=== PATIENT | female | born 1995 | race Asian ===

== ENCOUNTER 2024-09-05 18:59 | Emergency (ER) | payer BC, MEDICAID ==
--- NOTE | 2024-09-05 19:18 | ED.PDOC ---
SOB-HPI HPI Comments This is a 28 year old female with no significant past medical history presenting to the ED with chief complaint of chest pain. Patient reports that during work this afternoon at her desk, she began to experiencing midsternal, sharp chest pain. Patient relays that she had woken up this morning with associated cough and subjective fever, taking DayQuil prior to her shift at work. Patient states her chest pain is increased when movement and deep breathing. Patient notes she had visited urgent care on Tuesday and was swabbed for COVID-19 and Influenza, both coming back negative. Patient denies any N/V, SOB, dizziness, headache, chills, or abdominal pain. Time Seen by MD: 19:16 Reviewed notes: Nurses Notes, Medications, Allergies Information Source: Patient Mode of Arrival: Ambulatory Severity: Moderate Timing: Hours Duration: Since onset Context: At Rest PE Risk Factors: None History of: None Prehospital treatment: None Modifying Factors: Nothing Associated Signs and Symptoms: Cough, Chest Pain Quality: Sharp Radiation: No Radiation Location: Substernal If cough with SOB: Non-Productive Past Medical History PAST MEDICAL HISTORY: Denies Surgical History: Denies all surgeries HOSPITAL INSURANCE REPRESENTATIVE History: No Pertinent HOSPITAL INSURANCE REPRESENTATIVE History Family History Family History: Reviewed,noncontributory to illness Social History Smoker: Non-Smoker Alcohol: Denies ETOH Use Drugs: Denies Drug Use Lives In: Home Constitutional: reports: fever; denies: chills, diaphoresis, fatigue, malaise, sweats, weakness, others EENTM: denies: blurred vision, double vision, ear bleeding, ear discharge, ear drainage, ear pain, ear ringing, eye pain, eye redness, hearing loss, mouth pain, mouth swelling, nasal discharge, nose bleeding, nose congestion, nose pain, photophobia, tearing, throat pain, throat swelling, voice changes, others Respiratory: reports: cough; denies: hemoptysis, orthopnea, SOB at rest, shortness of breath, SOB with excertion, stridor, wheezing, others Cardiovascular: reports: chest pain; denies: dizzy spells, diaphoresis, Dyspnea on exertion, edema, irregular heart beat, left arm pain, lightheadedness, palpitations, PND, syncope, others Gastrointestinal: denies: abdomen distended, abdominal pain, blood streaked bowels, constipated, diarrhea, dysphagia, difficulty swallowing, hematemesis, melena, nausea, poor appetite, poor fluid intake, rectal bleeding, rectal pain, vomiting, others Genitourinary: denies: abnormal vagina bleeding, burning, dyspareunia, dysuria, flank pain, frequency, hematuria, incontinence, pain, , vagina discharge, urgency, others Neurological: denies: dizziness, fainting, headache, left sided numbness, left sided weakness, numbness, paresthesia, pre-existing deficit, right sided numbness, right sided weakness, seizure, speech problems, tingling, tremors, weakness, others Musculoskeletal: denies: back pain, gout, joint pain, joint swelling, muscle pain, muscle stiffness, neck pain, others Integumetry: denies: bruises, change in color, change in hair/nails, dryness, laceration, lesions, lumps, rash, wounds, others Allergic/Immunocompromised: denies: Difficulty Healing, Frequent Infections, Hives, Itching, others Hematologic/Lymphatic: denies: anemia, blood clots, easy bleeding, easy bruising, swollen glands, others Endocrine: denies: excessive hunger, excessive sweating, excessive thirst, excessive urination, flushing, intolerance to cold, intolerance to heat, unexplained weight gain, unexplained weight loss, others Psychiatric: denies: anxiety, bipolar disorder, depression, hopeless, panic disorder, schizophrenia, sleepless, suicidal, others All Other Systems: Reviewed and Negative Physical Exam General Appearance: No Apparent Distress HEENT: Other (Pupils and face symmetric. Moist mucous membranes.) Neck: Full Range of Motion, Normal Inspection Respiratory: Chest Non-Tender, Lungs Clear, No Accessory Muscle Use, No Respiratory Distress, Normal Breath Sounds Cardiovascular: No Edema, No JVD, Tachycardia Breast Exam: Deferred Gastrointestinal: Non Tender, Soft Genitalia: Deferred Pelvic: Deferred Rectal: Deferred Extremities: Normal inspection, Normal range of motion, Non-tender, No pedal edema Neurologic: Alert (Oriented x4), Normal Affect, Normal Mood, Other (Ambulatory) Cerebellar Function: NOT DONE Reflexes: NOT DONE Skin: Dry, Normal Color, Warm Lymphatic: NOT DONE EKG EKG : Pulse Rate (adult): 109 Comments Sinus tach, rate 109, normal intervals, normal axis, normal QRS, anteroseptal T inversion with other nonspecific T changes. Was a procedure done? Was a procedure done?: No Differential Dx Differential Diagnosis: Asthma, Bronchitis, CHF, COPD, Dysrhythmia, Panic Attack, Pneumonia, Pulmonary Embolism, URI, Other (ACS, SC, among others) X-Ray, Labs, Meds, VS Vital Signs Date Time Temp Pulse Resp B/P (MAP) Pulse Ox O2 Delivery O2 Flow Rate FiO2 09/05/24 19:18 109 09/05/24 19:10 109 Lab Test 09/05/24 20:20 09/05/24 19:33 Range/Units Troponin I High Sensitivity Pending < 3 L </=34 ng/L White Blood Count 9.5 4.4-10.8 10^3/uL Red Blood Count 6.13 H 4.0-5.20 10^6/uL Hemoglobin 12.0 L 12.2-16.2 g/dL Hematocrit 37.2 36.0-46.0 % Mean Corpuscular Volume 60.6 L 80.0-100.0 fL Mean Corpuscular Hemoglobin 19.6 L 28.0-32.0 pg Mean Corpuscular Hemoglobin Concent 32.3 32.0-36.0 g/dL Red Cell Distribution Width 16.4 H 11.8-14.3 % Platelet Count 219 140-450 10^3/uL Mean Platelet Volume 8.5 6.9-10.8 fL Neutrophils (%) (Auto) 72.0 37.0-80.0 % Lymphocytes (%) (Auto) 15.8 10.0-50.0 % Monocytes (%) (Auto) 6.7 0.0-12.0 % Eosinophils (%) (Auto) 5.0 0.0-7.0 % Basophils (%) (Auto) 0.5 0.0-2.0 % Neutrophils # (Auto) 6.9 1.6-8.6 10 ^3/uL Lymphocytes # (Auto) 1.5 0.4-5.4 10 ^3/uL Monocytes # (Auto) 0.6 0-1.3 10 ^3/uL Eosinophils # (Auto) 0.5 0-0.8 10 ^3/uL Basophils # (Auto) 0.1 0-0.2 10 ^3/uL Nucleated Red Blood Cells 0.0 % Prothrombin Time 10.3 9.3-11.8 sec Prothrombin Time INR 0.97 0.9-1.15 Activated Partial Thromboplast Time 31.0 24.5-34.5 SEC D-Dimer, Quantitative 0.31 0.0-0.49 mg/L FEU Sodium Level 139 136-145 mmol/L Potassium Level 3.6 3.5-5.1 mmol/L Chloride Level 103 98-107 mmol/L Carbon Dioxide Level 23 20-31 mmol/L Anion Gap 13 5-15 Blood Urea Nitrogen 10 9-23 mg/dL Creatinine 0.68 0.550-1.02 mg/dL Glomerular Filtration Rate Calc 122 >90 mL/min BUN/Creatinine Ratio 14.7 10.0-20.0 Serum Glucose 88 74-106 mg/dL Calcium Level 9.9 8.7-10.4 mg/dL B-Type Natriuretic Peptide 6.02 0-100 pg/mL [address] [address] Ph: [phone] DIAGNOSTIC IMAGING Diagnostic Imaging Report : [id number] Signed PATIENT: ALBA FONG ACCT: [id number] UNIT: [id number] : 1995 LOC: ER ROOM / BED: / AGE / SEX: 28 / F ADM STATUS: REG ER SERVICE 13 ORDERING PHYSICIAN: JF RUBI MD PROCEDURE(s): CXRP - CHEST PORTABLE REASON: cp ORDER NUMBER(s): [id number], ACCESSION NUMBER(s): [id number] CHEST RADIOGRAPH Indication: cp Technique: Single frontal view of the chest was obtained Comparison: None FINDINGS: Lines and Tubes: None Lungs: No focal consolidation. Pleura: No effusion. No pneumothorax. Cardiomediastinal contours: Unremarkable Bones: No acute osseous abnormality. IMPRESSION: 1. No acute cardiopulmonary disease. X-Ray, Labs, Meds, VS Comment 20-year-old female with no significant past medical history complaining of chest pain, cough and subjective fever Vitals remarkable for heart rate 109 Exam unremarkable except for tachycardia Rhythm strip independently interpreted by me: Sinus tach, rate 109, no ectopy. Chest x-ray IMPRESSION: 1. No acute cardiopulmonary disease. CBC, basic metabolic panel, BNP, D-dimer, coagulation panel and 2 serial troponins unremarkable for any abnormality of acute significance Patient treated with the following in the ED: Toradol 45 mg IM with improvement of her chest pain. She was not short of breath on re-evaluation, and vitals were stable. She was no longer tachycardic. Hospitalization was considered, however patient's workup is unremarkable and she states she feels better, so I no longer feel hospitalization is necessary. Patient now appears stable for discharge with close outpatient follow-up with her primary physician. Rx ibuprofen, Tylenol, Zithromax Time of 1ST Reevaluation: 20:15 Reevaluation 1ST: Unchanged Patient Education/Counseling: Diagnosis, Treatment Family Education/Counseling: Diagnosis, Treatment SEPSIS Sepsis Screen SEPSIS EXCLUSION NOTE: Sepsis Exclusion Note: Patient presents with SIRS criteria, but the SIRS response is attributed to [chest pain ], not a suspected infection. Sepsis bundle is not initiated at this time, due to this reason. Further management will focus on the treatment of the above condition (s). Physician Orders Chest Portable (09/05/24 19:14) Troponin-I Hs (09/05/24 20:14) Urinalysis (09/05/24 19:14) Test, Urine (09/05/24 19:14) Vital Signs Date Time Temp Pulse Resp B/P (MAP) Pulse Ox O2 Delivery O2 Flow Rate FiO2 09/05/24 19:18 109 09/05/24 19:10 109 Laboratory Tests Test 09/05/24 19:33 White Blood Count 9.5 10^3/uL (4.4-10.8) Departure 1 Departure Time of Disposition: 20:51 Impression: Primary Impression: Acute cough Additional Impression: Pleuritic chest pain Disposition: 01 HOME / SELF CARE / HOMELESS Condition: Stable Additional Instructions: Your blood tests, including screening test for heart attack, heart failure, and blood clots in your lungs, were unremarkable. Your chest x-ray was unremarkable. I have enclosed the report below. I have prescribed pain medication and antibiotics to cover a possible respiratory infection. Follow-up with your primary doctor in 1-2 days. Return to ER for persistent or worsening symptoms. [address] [address] Ph: [phone] DIAGNOSTIC IMAGING Diagnostic Imaging Report : [id number] Signed PATIENT: ALBA FONG ACCT: [id number] UNIT: [id number] : 1995 LOC: ER ROOM / BED: / AGE / SEX: 28 / F ADM STATUS: REG ER SERVICE 13 ORDERING PHYSICIAN: JF RUBI MD PROCEDURE(s): CXRP - CHEST PORTABLE REASON: cp ORDER NUMBER(s): [id number], ACCESSION NUMBER(s): [id number] CHEST RADIOGRAPH Indication: cp Technique: Single frontal view of the chest was obtained Comparison: None FINDINGS: Lines and Tubes: None Lungs: No focal consolidation. Pleura: No effusion. No pneumothorax. Cardiomediastinal contours: Unremarkable Bones: No acute osseous abnormality. IMPRESSION: 1. No acute cardiopulmonary disease. e-Prescriptions Acetaminophen (Tylenol Extra Strength) 500 Mg Tab 1000 MG PO Q6HP PRN, #30 TAB Prn fever or pain. Prov: JF RUBI MD 09/05/24 Ibuprofen Micronized (Ibuprofen) 600 Mg Tab 600 MG PO Q6HP PRN, #30 TAB Prn fever or pain. Take with food. Prov: JF RUBI MD 09/05/24 Azithromycin (Zithromax Z-Garrett) 250 Mg Tab 250 MG PO DAILY for 5 Days, #6 TAB Two tabs p.o. on day 1, then 1 tab daily for the next 4 days Prov: JF RUBI MD 09/05/24 Discharged With: Relative Critical Care Note Critical Care Time?: No Stability Stability form required: No Heart Score Heart Score: Heart Score Response (Comments) Value History Slightly Suspicious 0 EKG Repolarization Disturb 1 Age <45 0 Risk Factors No known risk factors 0 Troponin Normal limit 0 Total 1 I personally scribed for JF RUBI MD ([email or web address]) on 09/05/24 at 19:18. Electronically submitted by Naun Rangel ([email or web address]). JF RUBI MD Sep 05, 2024 19:18
[2024-09-05 19:40] LABS: Hematocrit 37.2 % (36.0-46.0); Hemoglobin 12.0 g/dL (12.2-16.2); Mean Corpuscular Hemoglobin 19.6 pg (28.0-32.0); Mean Corpuscular Volume 60.6 fL (80.0-100.0); Nucleated Red Blood Cells % 0.0 %
[2024-09-05 19:50] LABS: Chloride 103 mmol/L (98-107); Potassium 3.6 mmol/L (3.5-5.1); Sodium 139 mmol/L (136-145)
[2024-09-05 19:51] LABS: Anion Gap 13 (5-15); Carbon Dioxide 23 mmol/L (20-31)
[2024-09-05 19:52] LABS: Calcium 9.9 mg/dL (8.7-10.4)
[2024-09-05 19:56] LABS: BUN/Creatinine Ratio 14.7 (10.0-20.0); Blood Urea Nitrogen 10 mg/dL (9-23); Glucose 88 mg/dL (74-106)
[2024-09-05 19:57] LABS: INR 0.97 (0.9-1.15); Partial Thromboplastin Time 31.0 SEC (24.5-34.5); Prothrombin Time 10.3 sec (9.3-11.8)
--- NOTE | 2024-09-05 20:50 | DVH ---
CHEST RADIOGRAPH Indication: cp Technique: Single frontal view of the chest was obtained Comparison: None FINDINGS: Lines and Tubes: None Lungs: No focal consolidation. Pleura: No effusion. No pneumothorax. Cardiomediastinal contours: Unremarkable Bones: No acute osseous abnormality. IMPRESSION: 1. No acute cardiopulmonary disease.
[2024-09-05] MEDS ORDERED: AZITTAB PO (20:54)
[2024-09-05] MEDS ORDERED: ACET-1304 PO (20:54)
[2024-09-05] MEDS ORDERED: IBUP1TAB5 PO (20:54)
[2024-09-05 21:21] VITALS: TEMP 99.8
[2024-09-05 21:30] VITALS: BP 116/69
[2024-09-05 21:34] VITALS: PULSE 97; RESP 17; O2SAT 97
[2024-09-05] MEDS: KETOROLAC TROMETH 30 MG/ML 1ML VIAL IM ONE (21:36)
--- NOTE | 2024-09-06 12:07 | ECG ---
[facility] Test Date: 2024-09-05 Test Time: 19:10:05 Pat Name: ALBA FONG Department: ER Room: Gender: F Laboratory Sample Carrier: : 1995 Requested By: JF GUAJARDO Order Number: [id number] Reading MD: Jadiel Gonzalez Measurements Intervals [place] Rate: 109 P: 71 [place]: 120 QRS: 86 QRSD: 77 T: 13 QT: 312 QTc: 421 Interpretive Statements Sinus tachycardia Probable left atrial enlargement Borderline repolarization abnormality Electronically Signed On 09-06-2024 19:07:24 PDT by Jadiel Gonzalez Please click the below link to view image of tracing.
== END 2024-09-05 21:35 | disposition home or self-care (01) ==
LOC: EEVIPCON 18:59 → ER 18:59
DX: R07.81 Pleurodynia (principal); R05.9 Cough, unspecified; Z79.899 Other long term (current) drug therapy
CPT/HCPCS: 36415; 71045; 80048; 83880; 84484; 85025; 85379; 85610; 85730; 93005